=== PATIENT | female | born 1985 | race Caucasian/White ===

== ENCOUNTER 2017-12-28 12:04 | Observation (INO) | payer MEDICAID ==
[~2017-12-28] VITALS: Ht 160 cm; Wt 79.7 kg
[2017-12-28] MEDS ORDERED: metoprolol succinate 25mg (24-HOUR) SR. Tablet PO STA (12:30)
[2017-12-28 13:01] LABS: BASOPHILS % (AUTO) 0.3 % (0-1); EOSINOPHILS # (AUTO) 0.1 X10'3 (0-0.9); EOSINOPHILS % (AUTO) 1.4 % (0-6); HEMATOCRIT 40.1 % (35.0-45.0); HEMOGLOBIN 14.3 g/dl (12.0-16.0); LYMPHOCYTES # (AUTO) 2.3 X10'3 (1.1-4.8); LYMPHOCYTES % (AUTO) 27.5 % (21-51); MEAN CORPUSCULAR HEMOGLOBIN 31.7 PG (27.0-31.0); MEAN CORPUSCULAR HGB CONC 35.6 % (33.0-36.5); MEAN CORPUSCULAR VOLUME 89.2 FL (78-98); MEAN PLATELET VOLUME 7.7 FL (7.4-10.4); MONOCYTES # (AUTO) 0.6 X10'3 (0-0.9); MONOCYTES % (AUTO) 6.8 % (2-12); NEUTROPHILS # (AUTO) 5.3 X10'3 (1.8-7.7); PLATELET COUNT 248 X10'3 (140-440); RED CELL DISTRIBUTION WIDTH 12.7 % (11.5-14.5); WHITE BLOOD COUNT 8.2 X10'3 (4.5-11.0)
[2017-12-28 13:12] LABS: D-DIMER 0.53 MG/L FEU (0-0.50)
[2017-12-28 13:22] LABS: ALANINE AMINOTRANSFERASE 18 U/L (12-78); ALBUMIN 3.9 G/DL (3.4-5.0); ALBUMIN/GLOBULIN RATIO 1.1 (1.1-1.5); ALKALINE PHOSPHATASE 64 IU/L (46-116); ANION GAP 8 (8-16); ASPARTATE AMINO TRANSFERASE 13 U/L (10-37); BILIRUBIN,TOTAL 0.3 MG/DL (0.1-1.0); BLOOD UREA NITROGEN 16 MG/DL (7-18); CALCIUM 8.6 MG/DL (8.5-10.1); CHLORIDE 107 MMOL/L (99-107); GLUCOSE 107 MG/DL (70-104); SODIUM 141 MMOL/L (135-145); TOTAL CARBON DIOXIDE 26.5 MMOL/L (24-32); TOTAL PROTEIN 7.5 G/DL (6.4-8.2); eGFR 83 ML/MIN
[2017-12-28 13:41] LABS: URINE AMPHETAMINE SCREEN NEGATIVE (Neg); URINE BARBITUATE SCREEN NEGATIVE (Neg); URINE BENZODIAZEPINES SCREEN NEGATIVE (Neg); URINE CANNABINOID SCREEN NEGATIVE (Neg); URINE COCAINE SCREEN NEGATIVE (Neg); URINE METHADONE SCREEN NEGATIVE (Neg); URINE OPIATE SCREEN NEGATIVE (Neg); URINE PHENCYCLIDINE SCREEN NEGATIVE (Neg)
[2017-12-28] MEDS ORDERED: iohexol 350MG/ML 100ml bottle IV ONE (14:16)
[2017-12-28 14:56] LABS: URINE HCG NEGATIVE (NEG)
[2017-12-28] MEDS ORDERED: acetaminophen 325mg tablet PO PRN (16:45)
[2017-12-28] MEDS ORDERED: ondansetron/PF 4mg/2ml inj IV PRN (16:45)
[2017-12-28] MEDS ORDERED: mag hydrox/Alum hydrox/simeth 30ml oral suspension PO PRN (16:45)
[2017-12-28] MEDS ORDERED: magnesium hydroxide 30ml (MOM) UD suspension PO PRN (16:45)
[2017-12-28] MEDS ORDERED: NO HOME MEDS (17:07)
[2017-12-28] MEDS: normal saline 1000ml 1,000 ML IV SCH (17:12)
[2017-12-28 20:30] VITALS: BP 111/66
[2017-12-28 23:00] VITALS: BP 117/60
[2017-12-29 06:30] VITALS: BP 118/78
[2017-12-29 11:00] VITALS: BP 105/59
[2017-12-29] MEDS: normal saline 1000ml 1,000 ML IV SCH (12:42)
== END 2017-12-29 13:30 | disposition home or self-care (01) ==
LOC: ER 12:05 → ED HOLD 16:42 → PCU 3S 20:20
PROVIDERS: ADMIT Internal Medicine; ATTEND Internal Medicine
DX: R00.2 Palpitations (principal); R01.1 Cardiac murmur, unspecified; R79.1 Abnormal coagulation profile; F17.290 Nicotine dependence, other tobacco product, uncomplicated; F12.90 Cannabis use, unspecified, uncomplicated; Z82.49 Family history of ischemic heart disease and other diseases of the circulatory system
CPT/HCPCS: 36415; 71045; 71275; 80053; 80305; 81025; 83880; 84439; 84443; 84484; 85025; 85379; 87070; 93005; 93306; 96360; 96361; 99285; A6257; G0378; J7030; Q9967

== ENCOUNTER 2023-04-02 16:40 | Emergency (ER) | payer MEDICAID ==
[~2023-04-02] VITALS: Ht 162.6 cm; Wt 122.7 kg
[~2023-04-02 16:40] MED LIST: NO HOME MEDS
[2023-04-02 17:08] LABS: BASOPHILS % (AUTO) 0.4 % (0-1); EOSINOPHILS # (AUTO) 0.1 X10'3 (0-0.9); EOSINOPHILS % (AUTO) 1.2 % (0-6); HEMATOCRIT 43.3 % (35.0-45.0); HEMOGLOBIN 14.8 g/dl (12.0-16.0); LYMPHOCYTES # (AUTO) 1.7 X10'3 (1.1-4.8); LYMPHOCYTES % (AUTO) 19.8 % (21-51); MEAN CORPUSCULAR HEMOGLOBIN 29.8 PG (27.0-31.0); MEAN CORPUSCULAR HGB CONC 34.3 g/dL (33.0-36.5); MEAN PLATELET VOLUME 7.5 FL (7.4-10.4); MONOCYTES # (AUTO) 0.9 X10'3 (0-0.9); MONOCYTES % (AUTO) 10.4 % (2-12); NEUTROPHILS % (AUTO) 68.2 % (42-75); PLATELET COUNT 287 X10'3 (140-440); RED BLOOD COUNT 4.97 X10'6 (4.20-5.60); RED CELL DISTRIBUTION WIDTH 13.1 % (11.5-14.5); WHITE BLOOD COUNT 8.8 X10'3 (4.5-11.0)
[2023-04-02 17:27] LABS: ALANINE AMINOTRANSFERASE 30 U/L (12-78); ALBUMIN 3.7 G/DL (3.4-5.0); ALBUMIN/GLOBULIN RATIO 0.9 (1.1-1.5); ALKALINE PHOSPHATASE 104 IU/L (46-116); ANION GAP 11 (8-16); ASPARTATE AMINO TRANSFERASE 17 U/L (10-37); BILIRUBIN,TOTAL 0.3 MG/DL (0.1-1.0); BLOOD UREA NITROGEN 9 MG/DL (7-18); BUN/CREATININE RATIO 14.1 (10.0-20.0); CALCIUM 8.8 MG/DL (8.5-10.1); CHLORIDE 104 MMOL/L (99-107); CREATININE 0.64 MG/DL (0.40-0.90); GLUCOSE 109 MG/DL (70-104); POTASSIUM 3.8 MMOL/L (3.5-5.1); SODIUM 139 MMOL/L (135-145); TOTAL CARBON DIOXIDE 24.2 MMOL/L (24-32); TOTAL PROTEIN 7.7 G/DL (6.4-8.2); eGFR > 90 ML/MIN
[2023-04-02 17:32] LABS: MAGNESIUM 2.2 MG/DL (1.5-2.4)
--- NOTE | 2023-04-02 18:12 | NUR ---
PT PRESENTS THE ER WITH DIZZINESS, PT STATED DIZZINESS STARTED TODAY. " I JUST FEEL LIGHTHEADED AND I AM NOW STARTING TO HAVE HIGH BLOOD PRESSURE RECENTLY"
[2023-04-02] MEDS ORDERED: normal saline 1000ml 1,000 ML IV ONE (18:55)
[2023-04-02] MEDS ORDERED: ondansetron/PF 4mg/2ml inj IV ONE (18:55)
[2023-04-02] MEDS ORDERED: lisinopril 10 MG tablet PO ONE (19:15)
[2023-04-02] MEDS ORDERED: ONDA4TAB12 PO (19:18)
[2023-04-02] MEDS ORDERED: LISI10TA27 PO (19:18)
[2023-04-02 20:30] VITALS: BP 142/94
== END 2023-04-02 20:48 | disposition home or self-care (01) ==
LOC: ER 16:41
DX: I10 Essential (primary) hypertension (principal); E86.0 Dehydration; E78.00 Pure hypercholesterolemia, unspecified; F41.9 Anxiety disorder, unspecified; F17.200 Nicotine dependence, unspecified, uncomplicated; Z79.899 Other long term (current) drug therapy
CPT/HCPCS: 36415; 80053; 83735; 83880; 84484; 85025; 93005; 99284; J7030

== ENCOUNTER 2025-02-17 11:56 | Emergency (ER) | payer MEDICAID ==
[~2025-02-17] VITALS: Ht 167.6 cm; Wt 111.4 kg
[~2025-02-17 11:56] MED LIST changes: +LISI10TA27 PO; +ONDA-243 PO
[2025-02-17 11:59] VITALS: BP 177/136; PULSE 100; RESP 18; O2SAT 95
[2025-02-17] MEDS ORDERED: IBUP-1986 PO (13:12)
[2025-02-17 13:22] VITALS: TEMP 97.9
== END 2025-02-17 13:26 | disposition home or self-care (01) ==
LOC: ER 11:56
DX: S93.402A Sprain of unspecified ligament of left ankle, initial encounter (principal); E78.00 Pure hypercholesterolemia, unspecified; Z88.5 Allergy status to narcotic agent; Z88.8 Allergy status to other drugs, medicaments and biological substances; X58.XXXA Exposure to other specified factors, initial encounter; Y93.89 Activity, other specified; Y92.89 Other specified places as the place of occurrence of the external cause; Y99.8 Other external cause status
CPT/HCPCS: 73610; 99284; L4360